=== PATIENT | male | born 1960 | race Caucasian/White ===

== ENCOUNTER 2017-01-27 08:33 | Emergency (ER) | payer OTHER ==
[~2017-01-27] VITALS: Ht 180.3 cm; Wt 86.0 kg
[~2017-01-27 08:33] MED LIST: OXYC1TAB3 PO; RANI150T3 PO
[2017-01-27 08:38] VITALS: TEMP 36.4; Ht 180.3 cm; Wt 86.0 kg
[2017-01-27] MEDS ORDERED: CYCL10TA6 PO (08:42)
--- NOTE | 2017-01-27 09:26 | EMERGENCY ROOM VISIT NOTE ---
History Report prepared by Agatha: Keerthi Joseph Under the Supervision of: Dr. Marco Delacruz M.D. First contact with patient: 08:56 Chief Complaint: BACK PAIN Stated Complaint: LWR BACK PAIN History of Present Illness The patient is a 56 year old male who presents to the Emergency Room with complaints of constant back pain beginning 3 days ago. The patient states that he has bulging discs and has had back pain for the last few years. He notes that his pain is mostly in his lower right back. He denies any trauma, urinary symptoms, changes in bowels, and abdominal pain. The patient reports that he has been driving more often recently. He notes that he is on Flexeril and Oxycodone for his pain but he does not have any Oxycodone at home. He reports that he had a steroid shot previously that helped to relieve his symptoms. Source of History: patient Onset: 3 days ago Position: back (lower) Timing: constant Modifying Factors (Relieving): other (steroid) Associated Symptoms: No abdominal pain, No urinary symptoms Note: He denies any trauma and changes in bowels. Review of Systems All systems have been listed, reviewed, and are negative other than those previously mentioned. Please see Additional Medical History Sheet. Past Medical & Surgical Medical Problems: (1) Chronic back pain Family History Patient reports no known family medical history. Social History Smoking Status: Current Every Day Smoker Drug Use: none Marital Status: Housing Status: lives with family Occupation Status: employed Current/Historical Medications Scheduled Cyclobenzaprine Hcl (Flexeril), 10 MG PO HS Prednisone (Prednisone), 50 MG PO DAILY Scheduled PRN Oxycodone Immediate Rel Tab (Roxicodone Ir), 1-2 TAB PO Q4H PRN for Severe Pain Oxycodone/Acetaminophen 5MG/325MG (Percocet 5MG/325MG), 1-2 TABLETS PO Q4H PRN for Pain Allergies Coded Allergies: No Known Allergies (Unverified , 11/15/15) Physical Exam Vital Signs Date Time Temp Pulse Resp B/P Pulse Ox O2 Delivery O2 Flow Rate FiO2 01/27/17 09:49 79 18 149/91 99 01/27/17 08:38 36.4 75 16 155/98 96 Room Air Physical Exam GENERAL: Patient awake, alert, oriented x 3. Patient follows commands. Patient does not appear toxic. Patient is adequately hydrated and well- nourished. SKIN: No erythema, pallor, cyanosis or rash HEENT: Normal head, pupils equal, reactive to light and accommodation. Ears normal. Oral cavity and posterior pharynx appear normal. Neck: Without adenopathy, no neck vein distention. LUNGS: Clear to auscultation. No wheezes, no rales, no rhonchi. HEART: No murmurs. No gallops. No rubs BACK: Patient has spasm over his paravertebral musculature over the right side, no break in the skin, no tenderness over the spine. No stepoff. ABDOMEN: No masses, no rebound, no hepatomegaly or splenomegaly. EXTREMITIES: No signs of trauma. No pedal or pretibial edema. No calf or thigh tenderness. No motor, sensory, or circulatory deficits distally. Straight leg raising is negative bilaterally. NEUROLOGIC: Cranial nerves II-XII within normal limits. No gross motor sensory function deficits. Medical Decision & Procedures ED Course 0856: Past medical records reviewed. The patient was evaluated in room A3. A complete history and physical examination was performed. 0949: I spoke to the patient and updated him. 0956: Upon reevaluation, the patient appeared to have improvement of his symptoms. I discussed today's findings with the patient. He verbalized agreement of the treatment plan. The patient was discharged home. Medical Decision Differential diagnoses include ruptured nucleus, nucleus pulposus, lumbar strain , Cauda Equina syndrome. Patient has some spasm over the paravertebral lumbar musculature. The patient has had past imaging studies and I do not believe he requires any further imaging today. The patient will be placed on a short course of steroids. Patient was given a small number of Percocet prescription. And he is to continue Flexeril. The patient was encouraged to seek all further pain medication from his family physician. [place] Drug [place] Search Results: patient reviewed within database Drug Monitoring Findings: Patient has had multiple prescriptions. Impression Primary Impression: Back strain Additional Impression: Back spasm Scribe Attestation The scribe's documentation has been prepared under my direction and personally reviewed by me in its entirety. I confirm that the note above accurately reflects all work, treatment, procedures, and medical decision making performed by me. Departure Information Dispostion Home / Self-Care Prescriptions Prednisone (PREDNISONE) 50 Mg Tab 50 MG PO DAILY for 5 Days, #5 TAB Prov: Marco Delacruz M.D. 01/27/17 Oxycodone/Acetaminophen 5MG/325MG (PERCOCET 5MG/325MG) Tab 1-2 TABLETS PO Q4H Y for Pain, #15 TAB Prov: Marco Delacruz M.D. 01/27/17 Referrals No Doctor, Assigned (PCP) Forms HOME CARE DOCUMENTATION FORM, IMPORTANT VISIT INFORMATION Patient Instructions My [facility] Additional Instructions 600 mg ibuprofen every 6 hours until pain has resolved. One Flexeril every 8 hours for back spasm. Do not drive or operate machinery while taking Flexeril or Percocet. 1 Percocet every 4 hours as needed for severe pain. Problem Qualifiers
[2017-01-27] MEDS ORDERED: PRED50TA PO (09:37)
[2017-01-27] MEDS ORDERED: OXYC-57 PO (09:37)
[2017-01-27 09:49] VITALS: BP 149/91; PULSE 79; O2SAT 99
== END 2017-01-27 09:51 | disposition home or self-care (01) ==
LOC: C.EDB 08:35 → C.EDA 09:51
DX: S39.012A Strain of muscle, fascia and tendon of lower back, initial encounter (principal); X58.XXXA Exposure to other specified factors, initial encounter; F17.210 Nicotine dependence, cigarettes, uncomplicated

== ENCOUNTER 2017-11-23 15:08 | Emergency (ER) | payer SELFPAY ==
[~2017-11-23] VITALS: Ht 180.3 cm; Wt 86.0 kg
[~2017-11-23 15:08] MED LIST changes: +CYCL10TA6 PO; -OXYC1TAB3 PO; -RANI150T3 PO
[2017-11-23 15:10] VITALS: BP 153/92; PULSE 109; TEMP 36.5; O2SAT 97; Ht 180.3 cm; Wt 86.0 kg
[2017-11-23] MEDS ORDERED: OXYC-90 PO (15:20)
[2017-11-23] MEDS ORDERED: ACET-1256 PO (15:21)
[2017-11-23] MEDS ORDERED: OXYC1CAP5 PO (15:24)
--- NOTE | 2017-11-23 15:35 | EMERGENCY ROOM VISIT NOTE ---
History First contact with patient: 15:15 Chief Complaint: KNEEPAIN Stated Complaint: INJURED LEFT KNEE History of Present Illness The patient is a 56 year old male who presents to the Emergency Room with complaints of left knee pain. The patient reports he has had pain in his left knee for the past few weeks. He states it has been mild but has been worsening recently. He has been wearing a brace on the knee for the past 2-3 weeks. He states that the pain has been worse today and he has a difficult time walking up steps and bending the knee. He rates his discomfort a 7/10. He has been taking Tylenol for the pain. He denies history of any issues with the knee. He does not have an orthopedist. Review of Systems A 6 point review of systems was reviewed with the patient with pertinent positives and negatives as per history of present illness. All else were negative. Past Medical/Surgical History Medical Problems: (1) Chronic back pain Family History Patient reports no known family medical history. Social History Smoking Status: Current Every Day Smoker Drug Use: none Marital Status: Housing Status: lives with family Occupation Status: employed Current/Historical Medications Scheduled PRN Acetaminophen (Tylenol), 1,000 MG PO DAILY PRN for Pain or Fever Cyclobenzaprine Hcl (Flexeril), 10 MG PO HS PRN for Muscle Spasms Oxycodone Hcl (Oxycodone Hcl), 5-10 MG PO QID PRN for Pain Physical Exam Vital Signs Date Time Temp Pulse Resp B/P (MAP) Pulse Ox O2 Delivery O2 Flow Rate FiO2 11/23/17 15:10 36.5 109 17 153/92 97 Room Air Physical Exam VITALS: Vitals are noted on the nurse's note and reviewed by myself. Vital signs stable. GENERAL: This is a 56-year-old male, in no acute distress, well-developed well- nourished. MUSCULOSKELETAL: No obvious joint effusion. There is tenderness to palpation along the lateral superior aspect of the knee. Full range of motion of the knee. NEURO: Patient was alert and oriented to person place and time. Normal sensation. Medical Decision & Procedures ER Provider Diagnostic Interpretation: L KNEE 3 VIEWS CLINICAL HISTORY: left knee pain pain COMPARISON: None. DISCUSSION: The bones and joint spaces appear intact. There is no evidence of fracture, dislocation or bony disease. There is no evidence for soft tissue swelling. IMPRESSION: Negative study. Medical Decision Differential diagnosis includes arthritis, fracture, contusion, ligamentous injury, meniscal injury, among others. The patient is a 56-year-old male who presents today complaining of left knee pain. X-ray was obtained and read by radiology with no acute findings. I discussed findings as well as treatment plan with the patient. Patient requested something for pain and states that he has already taking Tylenol and ibuprofen without relief. I did specifically ask the patient had received any narcotic medications recently. He stated twice that he had not received any prescriptions recently, however reviewing the prescription drug monitoring program reveals that the patient has been receiving monthly prescriptions for oxycodone, with his most recent prescription 10/28/17. I informed the patient he would not be receiving any further narcotic medication from me. He was advised to follow-up with orthopedics or his primary care provider for further evaluation of his knee pain. [place] Search Results: patient reviewed within database (patient receives monthly prescriptions from a single provider) Medication Reconcilliation Current Medication List: was personally reviewed by me Blood Pressure Screening Patient's blood pressure: Elevated blood pressure Blood pressure disposition: Elevated BP felt to be situational Impression Primary Impression: Left knee pain Departure Information Dispostion Home / Self-Care Condition GOOD Referrals Kenyon Loera PA-C (PCP) Hernando Duggan MD Patient Instructions My [facility] Additional Instructions Follow-up with your primary care provider for further evaluation of your knee pain. For pain control, you can use the following [id number] medicines (if >12 yo): - Regular strength (325mg/tab) Tylenol (acetaminophen) 2 tabs every 4-6 hours as needed. Do not exceed 12 tablets in a 24 hour period. Avoid taking more than 4 grams (4000 mg) of Tylenol per day. This includes any other sources of acetaminophen you may take on a regular basis. - Regular strength (200 mg/tab) Advil (ibuprofen) 1-2 tabs every 4-6 hours as needed. Do not exceed a dose of 3200 mg per day. Ice the knee and elevate as needed for pain. Problem Qualifiers Primary Impression: Left knee pain Chronicity: acute Qualified Codes: M25.562 - Pain in left knee
--- NOTE | 2017-11-23 15:58 | DIAGNOSTIC IMAGING REPORT ---
L KNEE 3 VIEWS CLINICAL HISTORY: left knee pain pain COMPARISON: None. DISCUSSION: The bones and joint spaces appear intact. There is no evidence of fracture, dislocation or bony disease. There is no evidence for soft tissue swelling. IMPRESSION: Negative study. The above report was generated using voice recognition software. It may contain grammatical, syntax or spelling errors. Electronically signed by: Satish Landin M.D. 11/23/2017 3:57 PM Dictated Date/Time: 11/23/2017 3:56 PM
== END 2017-11-23 16:18 | disposition home or self-care (01) ==
LOC: C.EDB 15:09 → C.EDD 16:18
DX: M25.562 Pain in left knee (principal); F17.200 Nicotine dependence, unspecified, uncomplicated